=== PATIENT | female | born 1955 | race Caucasian/White ===

== ENCOUNTER 2017-07-15 10:30 | Outpatient (RCR) | payer BC, OTHER, SELFPAY | END 2017-07-15 10:31 | disposition home or self-care (01) | LOC: PT 10:30 | PROVIDERS: Family Provider Internal Medicine; Visit Provider Orthopaedic Surgery | DX: S46.011D Strain of muscle(s) and tendon(s) of the rotator cuff of right shoulder, subsequent encounter (principal) | CPT/HCPCS: 97010; 97014; 97016; 97033; 97035; 97110; 97164; G0283 ==

== ENCOUNTER → 2017-08-18 08:14 | Outpatient (POV) | payer BC, OTHER, SELFPAY | PROVIDERS: Family Provider Internal Medicine; Visit Provider Nurse Practitioner Acute Care | DX: Z00.00 Encounter for general adult medical examination without abnormal findings (principal) ==

== ENCOUNTER 2017-09-11 10:00 | Outpatient (RCR) | payer BC, OTHER, SELFPAY | END 2017-09-11 10:01 | disposition home or self-care (01) | LOC: PT 10:00 | PROVIDERS: Family Provider Internal Medicine; Visit Provider Orthopaedic Surgery | DX: M75.91 Shoulder lesion, unspecified, right shoulder (principal) | CPT/HCPCS: 97014; 97016; 97033; 97035; 97110; G0283 ==

== ENCOUNTER 2017-12-19 10:30 | Outpatient (RCR) | payer BC, OTHER, SELFPAY | END 2017-12-19 10:31 | disposition home or self-care (01) | LOC: PT 10:30 | PROVIDERS: Family Provider Internal Medicine; Visit Provider Orthopaedic Surgery Adult Reconstructive Orthopaedic Surgery | DX: M54.2 Cervicalgia (principal); M54.6 Pain in thoracic spine; M54.5 Low back pain | CPT/HCPCS: 97010; 97014; 97110; 97163; G0283 ==

== ENCOUNTER → 2019-12-28 14:51 | Outpatient (POV) | payer BC, OTHER, SELFPAY | PROVIDERS: PCP Internal Medicine; Visit Provider Dermatology | DX: Z00.00 Encounter for general adult medical examination without abnormal findings (principal) ==

== ENCOUNTER 2020-01-20 18:41 | Emergency (ER) | payer BC, OTHER, SELFPAY ==
[2020-01-20 18:53] VITALS: BP 162/71; PULSE 73; RESP 18; TEMP 36.9; O2SAT 96; BMI 26.9
--- NOTE | 2020-01-20 18:59 | XR_ITS ---
PROCEDURE: XR KNEE LT 3V CLINICAL INDICATION: TRAUMA Posttraumatic pain COMPARISON: No exams were available for comparison FINDINGS: No fracture or dislocation. No lytic or blastic change. There is normal mineralization. The joint spaces are well-preserved. No significant degenerative/arthritic changes. No erosive changes evident. Other findings:None. IMPRESSION: No acute findings. Dictated by: Rohith Bolden MD 01/21/2020 06:32 Rohith Bolden MD in [place] 01/21/2020 06:33
--- NOTE | 2020-01-20 18:59 | XR_ITS ---
PROCEDURE: XR TIBIA FIBULA LT 2V CLINICAL INDICATION: TRAUMA Posttraumatic pain COMPARISON: No exams were available for comparison FINDINGS: No fracture or dislocation. No lytic or blastic change. There is normal mineralization. The joint spaces are well-preserved. No significant degenerative/arthritic changes. No erosive changes evident. Other findings:None. IMPRESSION: No acute findings. Dictated by: Rohith Bolden MD 01/21/2020 06:31 Rohith Bolden MD in [place] 01/21/2020 06:31
[2020-01-20 19:00] VITALS: BP 162/76; PULSE 77; RESP 18; O2SAT 98
[2020-01-20 19:30] VITALS: BP 149/68; PULSE 74; RESP 17; O2SAT 95
[2020-01-20 20:00] VITALS: BP 151/66; PULSE 72; RESP 17; O2SAT 95
[2020-01-20 20:30] VITALS: BP 157/62; PULSE 70; RESP 17; O2SAT 98
--- NOTE | 2020-01-20 20:48 | HMH.EDGENADL ---
ED Disposition Clinical Impression: Abrasion, left lower leg, initial encounter, Hematoma of left lower leg Disposition: Home, Self-Care Condition on Discharge: Good Additional Instructions: You were seen on an emergency basis. It is very important that you follow up with your primary care provider and/or specialist as we discussed within 2 days. All labs and imaging were obtained and interpreted here to rule out life threatening emergencies, but your final results should be reviewed by your primary doctor at your follow up appointment. Please return to the emergency department if any of your symptoms worsen, or if they do not improve as we discussed. Referrals: Charles Garcia [Primary Care Provider] - - Critical Care Critical Care Time: No Attestation: On 01/20/20, the high probability of a clinically significant, sudden or life threatening deterioration of the following system(s) required my full and direct attention, intervention and personal management. The time I documented below is in addition to time spent performing reported procedures but includes the following listed in this critical care notation. Medical Decision Making - Medical Records Medical records reviewed: Yes: I reviewed the patient's medical records. - Wayne Inquiry Pt receiving controlled substance: No Vital Signs: 01/20/20 18:53 01/20/20 19:00 01/20/20 19:30 Temperature 98.5 F Temperature Source Oral Pulse Rate [Right] 73 77 74 Respiratory Rate 18 18 17 Blood Pressure [Right Arm] 162/71 H 162/76 H 149/68 H Blood Pressure Mean [Right Arm] 101 104 95 Blood Pressure Source [Right Arm] Automatic Cuff Automatic Cuff Automatic Cuff Blood Pressure Position [Right Arm] Sitting Supine Supine 02 Sat by Pulse Oximetry 96 98 95 Oxygen Delivery Method Room Air Room Air Room Air 01/20/20 20:00 01/20/20 20:30 Temperature Temperature Source Pulse Rate [Right] 72 70 Respiratory Rate 17 17 Blood Pressure [Right Arm] 151/66 H 157/62 H Blood Pressure Mean [Right Arm] 94 93 Blood Pressure Source [Right Arm] Automatic Cuff Automatic Cuff Blood Pressure Position [Right Arm] Supine Supine 02 Sat by Pulse Oximetry 95 98 Oxygen Delivery Method Room Air Room Air Orders (Tests/Meds): ED MEDICATIONS Discontinued Medications Generic Name Dose Route Start Last Admin Trade Name Freq PRN Reason Stop Dose Admin Hydrocodone Bitart/Acetaminophen 1 tab 01/20/20 19:40 01/20/20 20:10 Dallas 5/325mg Tablet PO 01/20/20 19:41 1 tab ONCE ONE Administration Tetanus/Diphtheria Toxoids 0.5 ml 01/20/20 19:40 01/20/20 20:01 Tenivac 0.5ml Syringe IM 01/20/20 19:41 0.5 ml .ONCE ONE Administration ORDERS Category Date Time Status Fibula/tibia XR left 2 views [XR tibia fibula LT 2V] Exams 01/20/20 18:59 Taken Stat XR knee LT 3V Stat Exams 01/20/20 18:59 Taken Medical Decision Narrative: 64-year-old female presenting with left leg pain after a fall through deck. She sustained an abrasion but no laceration. She had a hematoma to the zaidi which improved during her stay here and no signs of compartment syndrome. Her tetanus immunization was updated and she received 5 mg of oral Dallas with good pain control. She was able to ambulate without difficulty. X-rays of the left knee and left hip/fib were negative for fracture or dislocation. Patient will follow up with PCP General Adult HPI - General Chief complaint: PAIN Stated complaint: AO fall lacerations possible broken leg Time Seen by Provider: 01/20/20 19:49 Mode of Arrival: Wheelchair Limitations: Physical Limitations Description of Symptoms (Recalled from ER Triage Doc. by RN): PATIENT STATES SHE WAS WALKING ON HER WOODEN DECK WHEN HER LEFT LEG WENT THROUGH A BROKEN BOARD. PATIENT UNABLE TO AMBULATE ON THIS LEG AND REPORTS DECREASED ROM. SKIN TEARS NOTED TO THIS ANTERIOR ZAIDI, BUT NO DEEP LACERATIONS NOTED. BLEEDING IS MINIMAL - History of Present Illne
--- NOTE | 2020-01-20 20:51 | PC.NURSE ---
pt walked to bathroom
[2020-01-20 21:01] VITALS: BP 154/71; PULSE 68; RESP 16; TEMP 36.8; O2SAT 98
== END 2020-01-20 21:04 | disposition home or self-care (01) ==
PROVIDERS: Emergency Provider Physician Assistant; PCP Internal Medicine
DX: S80.812A Abrasion, left lower leg, initial encounter (principal); Z23 Encounter for immunization; Z88.5 Allergy status to narcotic agent; W17.89XA Other fall from one level to another, initial encounter; Y92.018 Other place in single-family (private) house as the place of occurrence of the external cause
CPT/HCPCS: 73562; 73590; 90471; 90714; 99283

== ENCOUNTER 2021-05-29 16:26 | Emergency (ER) | payer MEDICARE, BC, OTHER, SELFPAY ==
[2021-05-29 17:00] VITALS: BP 148/77; PULSE 85; RESP 20; TEMP 37.1; O2SAT 95; BMI 27.8
--- NOTE | 2021-05-29 17:07 | XR_ITS ---
PROCEDURE INFORMATION: Exam: XR Left Foot Exam date and time: 05/29/2021 5:07 PM Age: 66 years old Clinical indication: Pain; Foot; Left; Additional info: Pain; No trauma or injury TECHNIQUE: Imaging protocol: XR Left foot. Views: 3 or more views. COMPARISON: CR XR TIBIA FIBULA LT 2V 01/20/2020 7:15 PM FINDINGS: Bones/joints: Bones are poorly mineralized. Plantar calcaneal enthesopathy. Lisfranc joint appears normal in these non-weightbearing radiographs. 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 No acute fracture or malalignment. Slightly disproportionate cortical thickening along the 2nd metatarsal diaphysis. Soft tissues: See Bones/joints finding. IMPRESSION: 1. No acute osseous abnormality in the left foot. 2. Slightly disproportionate cortical thickening along the 2nd metatarsal diaphysis, which may reflect repetitive microstress injury. 3. Plantar calcaneal enthesopathy (aka bone spur). 4. Additional non-acute ancillary findings are detailed above.
--- NOTE | 2021-05-29 17:23 | HMH.EDUTC ---
[facility] [place]: Foot pain Qualifiers: Laterality: left Qualified Code(s): M79.672 - Pain in left foot Disposition: Home, Self-Care Condition on Discharge: Good Instructions: How to Apply an Juan Pablo Wrap, DI for Foot Pain Additional Instructions: *weight bearing as tolerated *RICE, Rest the extremity, Ice 15-20 minutes 3-4 times daily, Compress- wear the juan pablo wrap as discussed as much as possible to help reduce swelling and pain, Elevate the extremity when at rest *Juan Pablo wrap is for support and help control swelling, use it except in the shower. Be sure that is not to tight but not to loose either *Elevate when resting Over the counter pain medication that your Doctor has said that you can take may help with pain Immediately follow up with your family doctor for new or worsening of symptoms, or no noticeable improvement over the next 3-5 days Follow up with your Family Doctor Follow up with Podiatry for further evaluation call for appointment Over the counter Heel pads may help with heel spur Referrals: Tim Morales MD [Primary Care Provider] - Heather Hester DPM [Staff Physician] - Time of Disposition: 18:23 Medical Decision Making - Wayne Inquiry Pt receiving controlled substance: No Wayne was queried for this patient: No Vital Signs: 05/29/21 17:00 05/29/21 18:16 Temperature 98.7 F 98.7 F Temperature Source Oral Pulse Rate 85 Pulse Rate [Left Brachial] 85 Respiratory Rate 20 20 Blood Pressure 148/77 H Blood Pressure [Left Arm] 148/77 H Blood Pressure Mean [Left Arm] 100 Blood Pressure Source [Left Arm] Automatic Cuff Blood Pressure Position [Left Arm] Sitting 02 Sat by Pulse Oximetry 95 Oxygen Delivery Method Room Air - Lab Data Lab results reviewed: Yes: I reviewed the patient's lab results. Lab Results 05/29/21 17:24: Uric Acid 4.9 - Radiology Data #1 Image(s): Foot/Toes Image Reviewed: Yes I have reviewed radiologist's interpretation IMPRESSION: 1. No acute osseous abnormality in the left foot. 2. Slightly disproportionate cortical thickening along the 2nd metatarsal diaphysis, which may reflect repetitive microstress injury. 3. Plantar calcaneal enthesopathy (aka bone spur). 4. Additional non-acute ancillary findings are detailed above. [facility] [place] - General Stated complaint: L foot pain Time Seen by Provider: 05/29/21 17:24 Mode of Arrival: Ambulatory Source of Information: Patient Limitations: No Limitations Description of Symptoms (Recalled from Triage Doc. by RN): PATIENT C/O PAIN TO LEFT FOOT IN THE ARCH AND HEEL THAT STARTED FRIDAY NIGHT. NO KNOWN INJURY HEENT Symptoms (Recalled from RN notes): No Resp Symptoms (Recalled from RN notes): No Skin Symptoms (Recalled from RN notes): No MS Symptoms (Recalled from RN notes): Yes Functional Status (Recalled from RN notes): WNL - History of Present Illness Provider Complaint: Patient states that she started having pain in her left foot that started on Friday night States that it has continued to get worse since State that today the pain is around the arch, in her heel area and side of foot Denies known injury - Related Data Home Medications Medication Instructions Recorded Confirmed Esomeprazole Magnesium [Nexium] 40 mg PO HS 05/29/21 05/29/21 Nebivolol HCl [Bystolic] 5 mg PO DAILY 05/29/21 05/29/21 Allergies Allergy/AdvReac Type Severity Reaction Status Date / Time acetaminophen [From Percocet] Allergy Mild Verified 05/23/18 23:03 ibuprofen Allergy Mild Verified 05/23/18 23:03 oxycodone [From Percocet] Allergy Mild Verified 05/23/18 23:03 COCONUT Allergy Unknown STOMACH Uncoded 05/13/17 15:01 CRAMPING - Worker's Comp Is this a Worker's Comp case?: No H History - Hepatitis A Screen Drug use history?: No High risk sexual behaviors?: No History of sexually transmitted infection?: No Currently employed?: No Childcare worker?: No Do you have indoor plumbing?:
[2021-05-29 17:39] LABS: Uric Acid 4.9 mg/dl (2.5-6.2)
[2021-05-29 18:16] VITALS: BP 148/77; PULSE 85; RESP 20; TEMP 37.1; O2SAT 95
== END 2021-05-29 18:32 | disposition home or self-care (01) ==
PROVIDERS: Emergency Provider Nurse Practitioner; PCP Internal Medicine
DX: M79.672 Pain in left foot (principal)
CPT/HCPCS: G0463; 73630; 84550; 99202

== ENCOUNTER 2021-06-23 20:52 | Emergency (ER) | payer MEDICARE, BC, OTHER, SELFPAY ==
[2021-06-23 21:03] VITALS: BP 150/65; PULSE 76; RESP 18; TEMP 36.8; O2SAT 95; BMI 27.9
--- NOTE | 2021-06-23 21:23 | HMH.EDUTC ---
[facility] [place] Disposition Clinical Impression: Cellulitis of left foot, Left foot pain Disposition: Home, Self-Care Condition on Discharge: Good Instructions: Cellulitis Additional Instructions: Make sure you keep your appointment with Dr. Hester on Friday. Take the medications as directed. Spend as much time as you can tolerate with your foot elevated. Follow up with your primary care physician. GO TO THE ER FOR ANY WORSENING SYMPTOMS OR CONCERNS Prescriptions: Sulfamethoxazole/Trimethoprim [Bactrim DS tablet] 1 each PO BID 10 Days #20 tab Transmission Status: Pending to [id number] cephALEXin [cephALEXin 500mg capsule] 500 mg PO Q6H 10 Days #40 cap Transmission Status: [id number] Referrals: Tim Morales MD [Primary Care Provider] - Time of Disposition: 21:37 Medical Decision Making - Medical Records Medical records reviewed: No: I reviewed the patient's medical records. - Wayne Inquiry Pt receiving controlled substance: No Vital Signs: 06/23/21 21:03 06/23/21 21:30 Temperature 98.3 F 98.3 F Temperature Source Oral Pulse Rate 76 Pulse Rate [Left] 76 Respiratory Rate 18 18 Blood Pressure 150/65 H Blood Pressure [Right Arm] 150/65 H Blood Pressure Mean [Right Arm] 93 02 Sat by Pulse Oximetry 95 Orders (Tests/Meds): ED MEDICATIONS Discontinued Medications Generic Name Dose Route Start Last Admin Trade Name Freq PRN Reason Stop Dose Admin Ceftriaxone Sodium 1 gm 06/23/21 21:22 06/23/21 21:27 Ceftriaxone 1gm Vial IM 06/23/21 21:23 1 gm ONCE ONE Administration Lidocaine HCl 0 ml 06/23/21 21:22 06/23/21 21:28 Lidocaine 1% 5ml Pf Vial IM 06/23/21 21:23 2 ml ONCE ONE Administration [facility] [place] HPI - General Stated complaint: bone spur in lt heel, in pain Time Seen by Provider: 06/23/21 21:15 Mode of Arrival: Ambulatory Source of Information: Patient Limitations: No Limitations Description of Symptoms (Recalled from Triage Doc. by RN): pt c/o a swollen L foot with pain. pt states this has been ongoing since May.29. pt was dx with a bone spur. pt has an appointment with Dr. Hester on 1.31 HEENT Symptoms (Recalled from RN notes): No Resp Symptoms (Recalled from RN notes): No Skin Symptoms (Recalled from RN notes): No MS Symptoms (Recalled from RN notes): Yes Functional Status (Recalled from RN notes): wnl - History of Present Illness Provider Complaint: She states that she is having worsening pain of her left foot. She was diagnosed with a heel spur and referred to podiatry around 2 weeks ago. She has an appt. with Dr. Hester coming up on Friday. She states that her pain is worsening so she wants to get her foot checked tonight. She denies any fever or chills. She is a diabetic but she controls it with diet. She denies any known injury to the foot. She denies any wounds or open areas. She has never had problems with diabetic ulcers or cellulitis. - Related Data Home Medications Medication Instructions Recorded Confirmed Esomeprazole Magnesium [Nexium] 40 mg PO HS 05/29/21 05/29/21 Nebivolol HCl [Bystolic] 5 mg PO DAILY 05/29/21 05/29/21 Previous Rx's Medication Instructions Recorded Sulfamethoxazole/Trimethoprim 1 each PO BID 10 Days #20 tab 06/23/21 [Bactrim DS tablet] cephALEXin [cephALEXin 500mg 500 mg PO Q6H 10 Days #40 cap 06/23/21 capsule] Allergies Allergy/AdvReac Type Severity Reaction Status Date / Time acetaminophen [From Percocet] Allergy Mild Verified 05/23/18 23:03 ibuprofen Allergy Mild Verified 05/23/18 23:03 oxycodone [From Percocet] Allergy Mild Verified 05/23/18 23:03 NSAIDS (Non-Steroidal Allergy Verified 06/23/21 21:16 Anti-Inflamma COCONUT Allergy Unknown STOMACH Uncoded 05/13/17 15:01 CRAMPING - Worker's Comp Is this a Worker's Comp case?: No [facility] History - Hepatitis A Screen Drug use history?: No High risk sexual behaviors?: No History of sexual
[2021-06-23 21:30] VITALS: BP 150/65; PULSE 76; RESP 18; TEMP 36.8
== END 2021-06-23 21:42 | disposition home or self-care (01) ==
PROVIDERS: Emergency Provider Nurse Practitioner Family; PCP Internal Medicine
DX: L03.116 Cellulitis of left lower limb (principal); E11.9 Type 2 diabetes mellitus without complications
CPT/HCPCS: G0463; 96372; 99202; J0696

== ENCOUNTER → 2021-06-25 09:04 | Outpatient (CLI) | payer MEDICARE, BC, OTHER, SELFPAY ==
[2021-06-25 09:30] LABS: Basophils % 0.8 % (0.1-2.0); Eosinophils # 0.1 K/mm3 (0.0-0.4); Eosinophils % 2.2 % (0.1-12.0); Hematocrit 37.7 % (37.0-47.0); Hemoglobin 12.5 g/dL (12.2-16.2); Lymphocytes # 0.6 K/mm3 (0.7-4.5); Mean Corpuscular HGB Conc 33.2 g/dL (31.8-35.4); Mean Corpuscular Hemoglobin 32.1 pg (27.0-31.2); Mean Corpuscular Volume 96.9 fl (81-99); Mean Platelet Volume 7.2 fl (7.4-10.4); Monocytes # 0.1 K/mm3 (0.1-1.0); Monocytes % 4.8 % (1.7-9.3); Neutrophils # 1.8 K/mm3 (1.8-7.8); Neutrophils % 68.2 % (37.0-80.0); Platelet Count 163 K/mm3 (142-424); Red Blood Count 3.89 M/mm3 (4.20-5.40); Red Cell Distribution Width 14.9 % (11.5-17.5); White Blood Count 2.7 K/mm3 (4.8-10.8)
[2021-06-25 09:58] LABS: Erythrocyte Sedimentation Rate 45 mm/hr (0-30)
[2021-06-25 10:13] LABS: Alanine Aminotransferase 30 U/L (12-78); Albumin Level 4.5 g/dl (3.5-5.0); Albumin/Globulin Ratio 1.5 (1.1-1.8); Alkaline Phosphatase 114 U/L (38-126); Aspartate Amino Transferase 32 U/L (14-36); Bilirubin,Total 0.5 mg/dl (0.2-1.3); Blood Urea Nitrogen 10 mg/dl (7-17); Calcium 9.5 mg/dl (8.4-10.2); Carbon Dioxide 24 mmol/L (22.0-30.0); Chloride 107 mmol/L (98-107); Estimated Glomerular Filt Rate 72 ml/min (>60); GFR (African American) 87 ML/MIN (>60); Globulin 3.1 g/dL (1.3-3.2); Glucose 152 mg/dl (74-100); Sodium 144 mmol/L (136-145); Total Protein,Serum 7.6 g/dl (6.3-8.2)
[2021-06-25 10:18] LABS: C-Reactive Protein 7.3 mg/L (0-4)
== END ==
PROVIDERS: Visit Provider Podiatrist
DX: M79.672 Pain in left foot (principal); E11.9 Type 2 diabetes mellitus without complications
CPT/HCPCS: 36415; 80053; 83036; 85025; 85651; 86140